=== PATIENT | female | born 1990 | race Caucasian/White ===

== ENCOUNTER → 2021-08-29 16:49 | Outpatient (CLI) | payer MEDICAID, SELFPAY | PROVIDERS: Visit Provider Nurse Practitioner Family | DX: Z20.822 Contact with and (suspected) exposure to COVID-19 (principal); J02.9 Acute pharyngitis, unspecified | CPT/HCPCS: C9803; U0003; U0005 ==

== ENCOUNTER 2021-11-28 13:52 | Emergency (ER) | payer MEDICAID, SELFPAY ==
[2021-11-28 14:52] VITALS: BP 131/80; PULSE 62; RESP 20; TEMP 36.9; O2SAT 100; BMI 21.1
[2021-11-28 14:59] LABS: UTC Strep Screen (Rapid) Negative (Negative)
--- NOTE | 2021-11-28 15:17 | HMH.EDUTC ---
[facility] [place]ression: Strep throat Disposition: Home, Self-Care Condition on Discharge: Good Instructions: Strep Throat, DI for Strep Throat Additional Instructions: Drink plenty of fluids. Take tylenol or ibuprofen for pain or fever. Take the medications as directed. Follow up with your regular doctor. GO TO THE ER FOR ANY WORSENING SYMPTOMS Throw your tooth brush away and get a new one. Prescriptions: Brompheniramine/Pseudoephed/Dm [Bromfed Dm Cough Syrup] 5 ml PO Q6HP PRN #240 ml PRN Reason: Cough [facility] Ondansetron [Zofran 4mg ODT] 4 mg PO Q8HP PRN #20 tab PRN Reason: Nausea [facility] methylPREDNISolone [Medrol] 4 mg PO DIRECTED 6 Days #21 packet Transmission Status: [facility] Cefdinir [Omnicef 300mg Capsule] 300 mg PO BID #20 cap Transmission Status: [facility] Referrals: Provider,Referral, MD [Primary Care Provider] - Forms: Work/School Release Time of Disposition: 15:30 Medical Decision Making - Medical Records Medical records reviewed: No: I reviewed the patient's medical records. - Fabian Inquiry Pt receiving controlled substance: No Vital Signs: 11/28/21 14:52 11/28/21 15:38 Temperature 98.4 F 98.4 F Temperature Source Oral Pulse Rate 62 Pulse Rate [Left Radial] 62 Respiratory Rate 20 20 Blood Pressure 131/80 Blood Pressure [Left Arm] 131/80 Blood Pressure Mean [Left Arm] 97 Blood Pressure Source [Left Arm] Automatic Cuff Blood Pressure Position [Left Arm] Sitting 02 Sat by Pulse Oximetry 100 Oxygen Delivery Method Room Air - Lab Data Lab results reviewed: Yes: I reviewed the patient's lab results. Lab Results 11/28/21 14:24: Strep Scn Rapid Clinic Negative Orders (Tests/Meds): ORDERS Category Date Time Status Strep Screen Confirmation Stat Micro 11/28/21 14:24 [place] [facility] [place] - General Stated complaint: sore throat, FRANCO Time Seen by Provider: 11/28/21 15:17 Mode of Arrival: Ambulatory Source of Information: Patient Limitations: No Limitations Description of Symptoms (Recalled from Triage Doc. by RN): C/O FRANCO, sore throat x3 days HEENT Symptoms (Recalled from RN notes): Yes (FRANCO, sore throat) Resp Symptoms (Recalled from RN notes): No Skin Symptoms (Recalled from RN notes): No MS Symptoms (Recalled from RN notes): No Functional Status (Recalled from RN notes): n/a - History of Present Illness Provider Complaint: She c/o sore throat for the past 3 days. - Related Data Home Medications Medication Instructions Recorded Confirmed cetirizine 10 mg capsule 10 mg PO DAILY 09/07/19 08/29/21 multivitamin 1 tab PO DAILY 08/29/21 08/29/21 Previous Rx's Medication Instructions Recorded Brompheniramine/Pseudoephed/Dm 5 ml PO Q6HP PRN #240 ml 11/28/21 [Bromfed Dm Cough Syrup] Cefdinir [Omnicef 300mg Capsule] 300 mg PO BID #20 cap 11/28/21 Ondansetron [Zofran 4mg ODT] 4 mg PO Q8HP PRN #20 tab 11/28/21 methylPREDNISolone [Medrol] 4 mg PO DIRECTED 6 Days #21 11/28/21 packet Allergies Allergy/AdvReac Type Severity Reaction Status Date / Time Penicillins Allergy Intermediate Verified 08/29/21 14:32 latex Allergy Verified 08/29/21 14:32 - Worker's Comp Is this a Worker's Comp case?: No [facility] History - Hepatitis A Screen Drug use history?: No High risk sexual behaviors?: No History of sexually transmitted infection?: No Currently employed?: No Childcare worker?: No Do you have indoor plumbing?: Yes Do you have electricity?: Yes Attestation statement:: This patient has been screened for Hepatitis A risk factors. I have reviewed the patient's past medical history: Yes Other Surgeries: Yes: Cholecystectomy, Tubal Ligation Comment: Oral Surgery. D & C - Social History Smoking Status: Never smoker Alcohol Intake: never O
[2021-11-28 15:38] VITALS: BP 131/80; PULSE 62; RESP 20; TEMP 36.9; O2SAT 100
== END 2021-11-28 15:40 | disposition home or self-care (01) ==
PROVIDERS: Emergency Provider Nurse Practitioner Family
DX: J02.0 Streptococcal pharyngitis (principal); Z88.0 Allergy status to penicillin
CPT/HCPCS: 87880; 99212; G0463

== ENCOUNTER 2021-12-21 13:35 | Emergency (ER) | payer MEDICAID, SELFPAY ==
[2021-12-21 13:45] VITALS: BP 131/78; PULSE 83; RESP 19; TEMP 36.7; O2SAT 100; BMI 20.7
--- NOTE | 2021-12-21 14:05 | HMH.EDUTC ---
[facility] [place] Clinical Impression: Viral upper respiratory tract infection Disposition: Home, Self-Care Condition on Discharge: Good Instructions: DI for Viral Upper Respiratory Infection -- Adult, DI for Nasal Congestion Additional Instructions: ? Lots of rest ? Increase Fluids water, Gatorade, powerade, pedialyte,if /toddler/child ? Alternate Tylenol and / or ibuprofen as discussed for fever, aches, chills Follow up IMMEDIATELY with your family doctor for new or worsening Symptoms OR no noticeable improvement over the next 48-72 hours, 911 for difficulty or breathing ? You or your child area contagious until no fever, aches, chills for 24 hours with medication for symptoms ? Help Prevent the spread ? Wash your hands often. Use soap and water. Wash your hands after you use the bathroom, change a child's diapers, or sneeze. Wash your hands before you prepare or eat food. Use gel hand cleanser that has 60% alcohol, when soap and water are not available. Do not touch your eyes, nose, or mouth unless you have washed your hands first. ? Cover your mouth when you sneeze or cough. Cough into a tissue or the bend of your arm. If you use a tissue, throw it away immediately and wash your hands. ? Clean shared items with a germ-killing janitor cleaner. Clean table surfaces, doorknobs, and light switches. Do not share towels, silverware, and dishes with people who are sick. Wash bed sheets, towels, silverware, and dishes with soap and water. ? Wear a mask over your mouth and nose if you are sick. The face mask may help protect others from becoming infected with the flu. Wear the mask when in common areas of your home or if you seek care with a healthcare provider. ? Stay away from others if you are sick. Stay at home until 24 hours after your fever and symptoms are gone. Referrals: Provider,Referral, MD [Primary Care Provider] - As needed Time of Disposition: 14:32 Medical Decision Making - Fabian Inquiry Pt receiving controlled substance: No Fabian was queried for this patient: No Vital Signs: 12/21/21 13:45 Temperature 98.1 F Temperature Source Oral Pulse Rate [Right Brachial] 83 Respiratory Rate 19 Blood Pressure [Right Arm] 131/78 Blood Pressure Mean [Right Arm] 95 Blood Pressure Source [Right Arm] Automatic Cuff Blood Pressure Position [Right Arm] Sitting 02 Sat by Pulse Oximetry 100 Oxygen Delivery Method Room Air - Lab Data Lab results reviewed: Yes: I reviewed the patient's lab results. Lab Results 12/21/21 13:53: Influenza Type A Ag Negative, Influenza Type B Ag Negative 12/21/21 13:56: Group A Strep Rapid Negative Orders (Tests/Meds): ORDERS Category Date Time Status Strep Screen Confirmation Stat Micro 12/21/21 13:56 Received [facility] [place] - General Stated complaint: congestion, runny nose, watery eyes, sore throat Time Seen by Provider: 12/21/21 14:05 Mode of Arrival: Ambulatory Source of Information: Patient Limitations: No Limitations Description of Symptoms (Recalled from Triage Doc. by RN): PATIENT C/O RUNNY EYES/NOSE, CONGESTION, SNEEZING, AND NAUSEA X 2 DAYS HEENT Symptoms (Recalled from RN notes): Yes Resp Symptoms (Recalled from RN notes): No Skin Symptoms (Recalled from RN notes): No MS Symptoms (Recalled from RN notes): No Functional Status (Recalled from RN notes): WNL - History of Present Illness Provider Complaint: Patient states that she has been having nasal congestion, sneezing coughing achy and stuffy head States that her kids was sick last week with something similar and she was worried she may have flu or strep throat so she came in to get checked out - Related Data Home Medications Medication Instructions Recorded Confirmed multivitamin 1 tab PO DAILY 08/29/21 12/21/21 Loratadine [Claritin 10mg 10 mg PO DAILY 12/21/21 12/21/21 Tablet] Allergies Allergy/AdvReac Type Severity Reaction Status Date / Time Penicillins Allergy Intermediate Verified 08/29/21 14:32
[2021-12-21 14:11] LABS: Strep Scrn Group A (Rapid) Negative (Negative)
[2021-12-21 14:16] LABS: UTC Influenza A Antigen Negative (Negative); UTC Influenza B Antigen Negative (Negative)
[2021-12-21 14:35] VITALS: BP 131/78; PULSE 83; RESP 19; TEMP 36.7; O2SAT 100
== END 2021-12-21 14:38 | disposition home or self-care (01) ==
PROVIDERS: Emergency Provider Nurse Practitioner
DX: J06.9 Acute upper respiratory infection, unspecified (principal)
CPT/HCPCS: 87430; 87804; 99212; G0463

== ENCOUNTER 2022-03-28 18:12 | Emergency (ER) | payer MEDICAID, SELFPAY ==
--- NOTE | 2022-03-28 19:38 | HMH.EDUTC ---
[facility] [place] Clinical Impression: Tick bite Qualifiers: Encounter type: initial encounter Site of tick bite: unspecified site Qualified Code(s): W57.XXXA - Bitten or stung by nonvenomous insect and other nonvenomous arthropods, initial encounter Fatigue Qualifiers: Fatigue type: unspecified Qualified Code(s): R53.83 - Other fatigue Arthralgia Qualifiers: Joint pain location: unspecified Qualified Code(s): M25.50 - Pain in unspecified joint Disposition: Home, Self-Care Condition on Discharge: Good Instructions: Lyme Disease Test, DI for Arthralgia Additional Instructions: Drink plenty of fluids. Take tylenol or ibuprofen for pain or fever. Take the medications as directed. Follow up with your regular doctor. Prescriptions: Doxycycline Monohydrate [Doxycycline Kerr 100mg Tab] 100 mg PO Q12 10 Days #20 tab Transmission Status: Received by [facility] Referrals: Provider,Referral, MD [Primary Care Provider] - Forms: Work/School Release Time of Disposition: 19:55 Medical Decision Making - Medical Records Medical records reviewed: No: I reviewed the patient's medical records. - Fabian Inquiry Pt receiving controlled substance: No Vital Signs: 03/28/22 19:42 03/28/22 20:26 Temperature 100.4 F H 100.4 F H Temperature Source Oral Pulse Rate 86 Pulse Rate [Left] 86 Respiratory Rate 16 16 Blood Pressure 129/88 Blood Pressure [Right Arm] 129/88 Blood Pressure Mean [Right Arm] 101 02 Sat by Pulse Oximetry 100 - Lab Data Lab Results 03/28/22 20:10: WBC 6.9, RBC 4.71, Hgb 15.0, Hct 44.8, MCV 95.2, MCH 31.8 H, MCHC 33.4, RDW 12.4, Plt Count 194, MPV 8.6, Neut % (Auto) 80.4 H, Lymph % (Auto) 11.2, Kerr % (Auto) 4.3, Eos % (Auto) 3.4, Baso % (Auto) 0.7, Neut # (Auto) 5.5, Lymph # (Auto) 0.8, Kerr # (Auto) 0.3, Eos # (Auto) 0.2, Baso # (Auto) 0.1 03/28/22 20:10: Sodium 136, Potassium 3.7, Chloride 101, Carbon Dioxide 26, Anion Gap 12.7, BUN 8, Creatinine 0.60, Estimated Creat Clear 119, Estimated GFR 115, Est GFR ( Amer) 139, Glucose 104 H, Calcium 9.5 Result diagrams: 03/28/22 20:10 03/28/22 20:10 Orders (Tests/Meds): ORDERS Category Date Time Status Full Resp Panel w/COVID ([facility]) Routine Lab 03/28/22 20:10 Received Lyme (B. burgdorferi) PCR Routine Lab 03/28/22 20:10 [place] [facility] [place] - General Stated complaint: weakness and body aches Time Seen by Provider: 03/28/22 19:38 - History of Present Illness Provider Complaint: She states that around 1 week ago she went camping and ended up having multiple ticks embeded on her. Over the past 2 days she has began to run a low grade fever, have chills, fatigue and multple painful joints. She denies any rash. She does have several places where the tick were embedded. - Related Data Home Medications Medication Instructions Recorded Confirmed multivitamin 1 tab PO DAILY 08/29/21 12/21/21 Loratadine [Claritin 10mg 10 mg PO DAILY 12/21/21 12/21/21 Tablet] Previous Rx's Medication Instructions Recorded Doxycycline Monohydrate 100 mg PO Q12 10 Days #20 tab 03/28/22 [Doxycycline Kerr 100mg Tab] Allergies Allergy/AdvReac Type Severity Reaction Status Date / Time Penicillins Allergy Intermediate Verified 08/29/21 14:32 latex Allergy Verified 08/29/21 14:32 [facility] History - Hepatitis A Screen Attestation statement:: This patient has been screened for Hepatitis A risk factors. I have reviewed the patient's past medical history: Yes Other Surgeries: Yes: Cholecystectomy, Tubal Ligation Comment: Oral Surgery. D & C - Social History Smoking Status: Never smoker Alcohol Intake: never Occupational Status: unemployed Household Members: family Family Hx:: Non-contributory ROS Obtained: Yes All systems reviewed & no additional complaints - Constitutional Constitutional: Denies chills, Denies fever(s) - Eyes Eyes: Denies eye discharge - ENT Ears, Nose, Mouth,
[2022-03-28 19:42] VITALS: BP 129/88; PULSE 86; RESP 16; TEMP 38; O2SAT 100; BMI 20.7
[2022-03-28 20:22] LABS: Adenovirus,PCR Not Detected (NotDetected); Bordetella Pertussis Not Detected (NotDetected); Chlamydophila Pneumoniae, PCR Not Detected (NotDetected); Coronavirus 19, PCR Not Detected (NotDetected); Coronavirus 229E Not Detected (NotDetected); Coronavirus NL63 Not Detected (NotDetected); Coronavirus OC43 Not Detected (NotDetected); Coronovirus HKU1,PCR Not Detected (NotDetected); Human Metapneumovirus Not Detected (NotDetected); Influenza A, PCR Not Detected (NotDetected); Influenza AH1, 2009 Not Detected (NotDetected); Influenza AH1, PCR Not Detected (NotDetected); Influenza AH3,PCR Not Detected (NotDetected); Influenza B, PCR Not Detected (NotDetected); Mycoplasma Pneumoniae, PCR Not Detected (NotDetected); Parainfluenza 1, PCR Not Detected (NotDetected); Parainfluenza 2, PCR Not Detected (NotDetected); Parainfluenza 3, PCR Not Detected (NotDetected); Parainfluenza 4, PCR Not Detected (NotDetected); Respiratory Syncytial Virus Not Detected (NotDetected); Rhinovirus/Enterovirus Not Detected (NotDetected)
[2022-03-28 20:26] VITALS: BP 129/88; PULSE 86; RESP 16; TEMP 38
[2022-03-28 20:30] LABS: Basophils # 0.1 K/mm3 (0-0.2); Basophils % 0.7 % (0.1-2.0); Eosinophils # 0.2 K/mm3 (0.0-0.4); Eosinophils % 3.4 % (0.1-12.0); Hematocrit 44.8 % (37.0-47.0); Lymphocytes # 0.8 K/mm3 (0.7-4.5); Lymphocytes % 11.2 % (10-50); Mean Corpuscular HGB Conc 33.4 g/dL (31.8-35.4); Mean Corpuscular Hemoglobin 31.8 pg (27.0-31.2); Mean Corpuscular Volume 95.2 fl (81-99); Mean Platelet Volume 8.6 fl (7.4-10.4); Monocytes # 0.3 K/mm3 (0.1-1.0); Monocytes % 4.3 % (1.7-9.3); Neutrophils # 5.5 K/mm3 (1.8-7.8); Neutrophils % 80.4 % (37.0-80.0); Platelet Count 194 K/mm3 (142-424); Red Blood Count 4.71 M/mm3 (4.20-5.40); Red Cell Distribution Width 12.4 % (11.5-17.5); White Blood Count 6.9 K/mm3 (4.8-10.8)
[2022-03-28 20:35] LABS: Chloride 101 mmol/L (98-107); Sodium 136 mmol/L (136-145)
[2022-03-28 20:36] LABS: Potassium 3.7 mmoL/L (3.5-5.1)
[2022-03-28 20:38] LABS: Blood Urea Nitrogen 8 mg/dl (7-17); Creatinine Clearance Estimated 119 mL/min (50-200); Estimated Glomerular Filt Rate 115 ml/min (>60); GFR (African American) 139 ML/MIN (>60)
[2022-03-28 20:39] LABS: Anion Gap 12.7 mEq/L (5-15); Calcium 9.5 mg/dl (8.4-10.2); Carbon Dioxide 26 mmol/L (22.0-30.0); Glucose 104 mg/dl (74-100)
[2022-04-11 07:11] LABS: Lyme B. burgdorferi PCR Blood Negative (Negative)
== END 2022-03-28 20:36 | disposition home or self-care (01) ==
PROVIDERS: Emergency Provider Nurse Practitioner Family
DX: R53.83 Other fatigue (principal); W57.XXXA Bitten or stung by nonvenomous insect and other nonvenomous arthropods, initial encounter; M25.50 Pain in unspecified joint
CPT/HCPCS: 80048; 85025; 87476; 87581; 87632; 87798; 99212; C9803; G0463; U0003; U0005

== ENCOUNTER 2023-08-29 15:55 | Emergency (ER) | payer MEDICAID, SELFPAY ==
[2023-08-29 16:25] VITALS: BP 147/90; PULSE 87; RESP 19; TEMP 37.1; O2SAT 100; BMI 21.9
--- NOTE | 2023-08-29 16:59 | EXP.UTC ---
Discharge Plan Disposition Patient Disposition: Home, Self-Care Condition: Good Prescriptions Prescriptions: New fnkryuabsytsovc-rxpofvquh-XW [Bromfed DM] 2-30-10 mg/5 mL Syrup 10 ml PO Q4H PRN (Reason: Cough) Qty: 240 0RF No Action multivitamin Tablet 1 tab PO DAILY loratadine 10 MG tablet 10 mg PO DAILY doxycycline monohydrate 100 MG tablet 100 mg PO Q12 10 Days Qty: 20 0RF Referrals Follow up/Referrals: Provider,Referral, [Primary Care Provider] - See instructions Activity Restrictions/Add. Instructions Additional Instructions/Restrictions: *Monitor Temp, Over the counter Motrin or Tylenol as directed/as needed Tylenol every 4 hours and Motrin every 6 hours (as long as your family doctor has told you that you can take it) for fever or pain. and straight to ER if unable to lower temp less than 101.0 after medication given *Warm salt water gargles may help to soothe the throat *Throat Lozenges? *Warm fluids like tea with honey may help to soothe the throat? *Sleep elevated *Humidifier/Vaporizer *Bromfed may cause drowsiness. Know how it effects you (your child) before driving, caring for small child, or sending your child to school. Not other antihistamines/allergy medications while taking bromfed Your throat swab was sent for culture. Those results are typically sent to your primary care. Be sure to follow up in 2-3 days with your family doctor/primary care physician if no improvement so they can review those result and treat if necessary. If you don?t have a primary care doctor, I recommend you get one but in the mean time, you will have to return to a walk in clinic Follow up IMMEDIATELY for new or worsening symptoms or no Noticeable improvement over the next 48-72 hours. 911 for difficulty breathing or swallowing You were tested for today for Upper Respiratory Panel with COVID19 your test result should be back in the next 24 hours you may check your results on the [facility] if your COVID is positive you must Quarantine for 5 days Clinical Impressions Clinical Impression: Viral syndrome Instructions Patient Instructions: DI for Viral Syndrome Discharge ED Provider: Katie Gutiérrez [facility] HPI General Stated complaint: exposed to flu, vomiting, fever Mode of Arrival: Ambulatory Source of Information: Patient Limitations: No Limitations Time Seen by Provider: 08/29/23 16:59 Description of Symptoms (Recalled from Triage Doc. by RN): PATIENT C/O COUGH, SORE THROAT, FEVER, FATIGUE, BODY ACHES, AND RUNNY NOSE SINCE YESTERDAY HEENT Symptoms (Recalled from RN notes): Yes Resp Symptoms (Recalled from RN notes): Yes Skin Symptoms (Recalled from RN notes): No MS Symptoms (Recalled from RN notes): No Functional Status (Recalled from RN notes): WNL History of Present Illness Provider Complaint: Patient states she has been caring for her children that was dx with parainfluenza and other family member that lives upstairs tested positive for COVID and flu B States that she has been having body aches, chills, runny nose, sore throat, fever and cough so today when she wasnt feeling any better she came in to get tested Related Data Home Medications Medication Instructions Recorded Confirmed multivitamin 1 tab PO DAILY Supplement 08/29/21 12/21/21 loratadine 10 mg tablet 10 mg PO DAILY Allergy symptoms 12/21/21 12/21/21 Previous Rx's Medication Instructions Recorded doxycycline monohydrate 100 mg 100 mg PO Q12 10 days #20 tabs 03/28/22 tablet zritkteidjdwvuj-snzwruzuxabhbgs-OD 10 ml PO Q4H PRN Cough #240 mL 08/29/23 2 mg-30 mg-10 mg/5 mL oral syrup (Bromfed DM) Allergies Allergy/AdvReac Type Severity Reaction Status Date / Time Penicillins Allergy Intermediate Verified 08/29/21 14:32 latex Allergy Verified 08/29/21 14:32 Worker's Comp Is this a Worker's Comp case?: No [facility] Disclaimer: The information contai
[2023-08-29 17:04] LABS: UTC Influenza A Antigen Negative (Negative); UTC Influenza B Antigen Negative (Negative); UTC Strep Screen (Rapid) Negative (Negative)
[2023-08-29 17:10] VITALS: BP 147/90; PULSE 87; RESP 19; TEMP 37.1; O2SAT 100
== END 2023-08-29 17:28 | disposition home or self-care (01) ==
PROVIDERS: Emergency Provider Nurse Practitioner
DX: R11.2 Nausea with vomiting, unspecified (principal); R50.9 Fever, unspecified; R07.0 Pain in throat; R05.9 Cough, unspecified; R53.83 Other fatigue; R09.81 Nasal congestion; M79.18 Myalgia, other site; B34.9 Viral infection, unspecified; Z20.822 Contact with and (suspected) exposure to COVID-19
CPT/HCPCS: 87804; 87880; 99212; 99214; G0463

== ENCOUNTER 2023-10-22 14:09 | Emergency (ER) | payer MEDICAID, SELFPAY ==
--- NOTE | 2023-10-22 15:08 | ED_ITS ---
Discharge Plan Disposition Patient Disposition: Home, Self-Care Condition: Good Prescriptions Prescriptions: New azithromycin [Zithromax] 250 mg tablet 250 mg PO UD DOSE PK Qty: 6 0RF Rx Instructions: Take two (2) tablets today, then one (1) tablet days #2 thru #5 [id number]-youwlxtsg-MO [Bromfed DM] 2-30-10 mg/5 mL Syrup 5 ml PO Q6H PRN (Reason: Cough) Qty: 240 0RF prednisone 10 mg tablet 10 mg PO BID 5 Days Qty: 10 0RF No Action multivitamin Tablet 1 tab PO DAILY loratadine 10 MG tablet 10 mg PO DAILY Referrals Follow up/Referrals: Provider,Referral, MD [Primary Care Provider] - See instructions Activity Restrictions/Add. Instructions Additional Instructions/Restrictions: Drink plenty of fluids. Take tylenol or ibuprofen for pain or fever. Take the medications as directed. Follow up with your regular doctor. GO TO THE ER FOR ANY WORSENING SYMPTOMS Clinical Impressions Clinical Impression: Sinusitis, Acute viral syndrome Stand Alone Forms Stand Alone Forms: Work/School Release Instructions Patient Instructions: DI for Sinusitis, DI for Viral Syndrome Discharge ED Provider: Joselito Espinoza [facility] [place] General Stated complaint: cough, sneezing, runny nose, Time Seen by Provider: 10/22/23 15:08 History of Present Illness Provider Complaint: She states that for the past 3 days she has had sinus congestion, sore throat, ear pain, and a productive cough. Related Data Home Medications Medication Instructions Recorded Confirmed multivitamin 1 tab PO DAILY Supplement 08/29/21 10/22/23 loratadine 10 mg tablet 10 mg PO DAILY Allergy symptoms 12/21/21 10/22/23 Previous Rx's Medication Instructions Recorded azithromycin 250 mg tablet 250 mg PO UD DOSE PK #6 tabs 10/22/23 (Zithromax) gcpyjugafcrshgs-fybogmdmfkziaup-GQ 5 ml PO Q6H PRN Cough #240 mL 10/22/23 2 mg-30 mg-10 mg/5 mL oral syrup (Bromfed DM) prednisone 10 mg tablet 10 mg PO BID 5 days #10 tabs 10/22/23 Allergies Allergy/AdvReac Type Severity Reaction Status Date / Time Penicillins Allergy Intermediate Verified 10/22/23 15:31 latex Allergy Verified 10/22/23 15:31 [facility] Disclaimer: The information contained in this section may have been updated after the patient was seen, as this information can be updated by other users. Social History Smoking Status: Never smoker alcohol intake: never current occupational status: unemployed Travel in the last 8 weeks: None household members: family ROS Obtained: Yes All systems reviewed & no additional complaints except as documented Constitutional Constitutional: Reports poor appetite Eyes Eyes: Reports system reviewed and no additional complaints, except as documented ENT Ears, Nose, Mouth, and Throat: Reports as per HPI Cardiovascular Cardiovascular: Reports system reviewed and no additional complaints, except as documented and Denies chest pain Respiratory Respiratory: Denies shortness of breath, Reports chest congestion, Reports cough, Denies stridor and Denies wheezing Gastrointestinal Gastrointestingal: Reports system reviewed and no additional complaints, except as documented; Denies abdominal pain, diarrhea or vomiting Musculoskeletal Musculoskeletal: Reports system reviewed and no additional complaints, except as documented and Denies arthralgias Integumentary/Breasts Skin/Breast: Reports system reviewed and no additional complaints, except as documented and Denies rash Neurologic Neurologic: Denies paresthesias Allergic/Immunologic Allergic/Immunologic: Denies wheezing Physical Exam General General appearance: alert and in no apparent distress Head Head exam: atraumatic, normocephalic and normal inspection Eye Eye exam: Present normal appearance; Absent PERRL or EOMI ENT ENT exam: Present mucous membranes moist and normal external ear exam Expanded ENT Exam TM/Canal exam: Bilateral TM: erythema, bulging and effusion Nose exam: Absent sinus tenderness Nasal speculum exam: Bilateral: normal Mouth exam: Present normal external inspection and other; Absent drooling Teeth exam: Present normal inspection Throat exam: Present tonsillar erythema and tonsillomegaly Neck Neck exam: Present normal inspection, full ROM and trachea midline; Absent tenderness, meningismus or lymphadenopathy Chest Chest inspection: Present normal inspection and symmetric chest wall rise; Absent tenderness Respiratory Respiratory exam: Present normal lung sounds bilaterally; Absent respiratory distress, wheezes or stridor Cardiovascular Cardiovascular exam: Present regular rate, normal rhythm and normal heart sounds; Absent tachycardia or irregular rhythm Abdominal Exam Abdominal exam: Present soft and normal bowel sounds; Absent distention, tenderness, guarding, rebound or rigidity Extremities Exam Extremities exam: Present normal inspection and normal capillary refill; Absent tenderness, joint swelling or calf tenderness Back Exam Back exam: Present normal inspection and full ROM; Absent tenderness, CVA tenderness (R) or CVA tenderness (L) Neurological Exam Neurological exam: Present alert, oriented X3, CN II-XII intact, normal gait and reflexes normal; Absent motor sensory deficit Psychiatric Psychiatric exam: Present normal affect and normal mood Skin Skin exam: Present warm, dry, intact and normal color Lymphatic Lymphatic Findings: no adenopathy Medical Decision Making Medical Records Medical records reviewed: No I reviewed the patient's medical records. Fabian Inquiry Pt receiving controlled substance: No Lab Data Lab results reviewed: Yes I reviewed the patient's lab results.
[2023-10-22 15:15] VITALS: BP 141/80; PULSE 74; RESP 18; TEMP 37.2; O2SAT 98; BMI 22.3
[2023-10-22 15:31] LABS: UTC Influenza A Antigen Negative (Negative)
[2023-10-22 15:32] LABS: UTC Influenza B Antigen Negative (Negative)
[2023-10-22 15:43] VITALS: BP 141/80; PULSE 74; RESP 18; TEMP 37.2; O2SAT 98
== END 2023-10-22 15:43 | disposition home or self-care (01) ==
PROVIDERS: Emergency Provider Nurse Practitioner Family
DX: J01.90 Acute sinusitis, unspecified (principal); H92.03 Otalgia, bilateral; R05.9 Cough, unspecified; R07.0 Pain in throat; R09.81 Nasal congestion
CPT/HCPCS: 87804; 87880; 99212; 99214; G0463